=== PATIENT | male | born 1975 | race African-American/Black ===

== ENCOUNTER 2016-11-15 19:59 | Emergency (ER) | payer MEDICAID ==
--- NOTE | 2016-11-15 23:09 | ED Physician Chart ---
Chief Complaint/HPI - Patient Information Date Seen:: 11/15/16 Time Seen:: 23:00 Chief Complaint:: vomiting History of Present Illness:: 0nset 1 hr ago of vomiting. Has vomited 3-4 times and had diarrhea twice. Denies abdominal pain. Allergies:: Allergies Allergy/AdvReac Type Severity Reaction Status Date / Time No Known Allergies Allergy Verified 11/15/16 21:32 Vitals:: Vital Signs - 8 hr 11/15/16 20:35 Temp 98.1 F HR 88 RR 20 BP 126/78 O2 Sat % 98 Historian:: Patient Review:: Nurse's Note Reviewed Review of Systems - Review of Systems General/Constitutional: No fever, No chills Skin: No skin lesions Head: No headache Eyes: No loss of vision ENT: No earache Neck: No neck pain Cardio Vascular: No chest pain Pulmonary: No SOB GI: Nausea, Vomiting, Diarrhea G/U: No dysuria Musculoskeletal: No bone or joint pain Endocrine: No polyuria Psychiatric: Prior psych history Hematopoietic: No bruising Allergic/Immuno: No urticaria Neurological: No syncope, No focal symptoms Past Medical History - Past Medical History Past Medical History: Other (schizophrenia) Family History: None Social History: Smoker, Homeless, Other (smokes marijuana) Surgical History: None Psychiatricy History: Schizophrenia Medication: None ED Septic Shock - . Is Septic Shock (SBP<90, OR Lactate>4 mmol\L) present?: No - <6hrs of presentation: Vital Signs: Vital Signs - 8 hr 11/15/16 20:35 Temp 98.1 F HR 88 RR 20 BP 126/78 O2 Sat % 98 Reassessment (Disposition) - Reassessment Reassessment Condition:: Unchanged - Diagnosis Diagnosis:: gastroenteritis - Aftercare/Follow up Instructions Aftercare/Follow-Up Instructions:: Refer to Discharge Instructions - Patient Disposition Discharge/Transfer:: Home Condition at Disposition:: Stable, Improved
== END 2016-11-16 | disposition home or self-care (01) ==
LOC: ER 19:59
DX: R19.7 Diarrhea, unspecified (principal); K52.9 Noninfective gastroenteritis and colitis, unspecified; F20.9 Schizophrenia, unspecified; F17.200 Nicotine dependence, unspecified, uncomplicated; F12.90 Cannabis use, unspecified, uncomplicated; Z59.0 Homelessness
CPT/HCPCS: 99282; Q0162